=== PATIENT | female | born 1950 | race Caucasian/White ===

== ENCOUNTER 2017-08-11 14:52 | Emergency (ER) | payer MEDICARE ==
[2017-08-11 16:25] LABS: Hematocrit 31 % (35-47); Hemoglobin 10.7 g/dl (12.0-16.0); Mean Corpuscular HGB Conc 35 g/dl (31-36); Mean Corpuscular Hemoglobin 32 pg (27-31); Mean Corpuscular Volume 93 fL (80-97); Mean Platelet Volume 10 um3 (7.4-10.4); Red Blood Count 3.31 10^6/ul (4.0-5.4); Red Cell Distribution Width 15 % (10.5-15); White Blood Count 4.1 10^3/ul (3.5-10.8)
--- NOTE | 2017-08-11 16:26 | RAD ---
INDICATION: Shortness of breath. COMPARISON: Comparison is made with a prior chest x-ray study from November 21, 2007. TECHNIQUE: AP and lateral views of the chest were obtained. FINDINGS: The heart appears mildly enlarged and unchanged. The lungs are underinflated and grossly clear. No pleural effusion is seen. There is flattening of the diaphragms suggestive of chronic obstructive pulmonary disease. IMPRESSION: NO EVIDENCE FOR ACUTE FINDING.
[2017-08-11 16:48] LABS: Albumin 3.4 g/dL (3.2-5.2); Calcium 8.6 mg/dL (8.6-10.3); EGFR African American 79.8 (>60); Globulin 3.3 g/dL (2-4); Potassium 4.1 mmol/L (3.5-5.0); Total Bilirubin 0.3 mg/dL (0.2-1.0); Total Protein 6.7 g/dL (6.4-8.9)
[2017-08-11 17:23] LABS: TSH (Thyroid Stimulating Horm) 1.27 mcIU/mL (0.34-5.60)
--- NOTE | 2017-08-11 19:29 | RAD ---
INDICATION: Bilateral lower extremity edema. COMPARISON: There are no prior studies available for comparison. TECHNIQUE: Multiple real-time, color flow and Doppler tracings of both lower extremities were obtained. FINDINGS: The common femoral, femoral, profunda femoral and popliteal veins all demonstrate normal compressibility, augmentation with compression and phasic response with respiration. The posterior tibial veins demonstrate normal compressibility and augmentation with compression. The right peroneal veins appear within normal limits. The left peroneal veins are occluded. IMPRESSION: OCCLUSIVE DEEP VENOUS THROMBOSIS WITHIN THE PERONEAL VEINS OF THE LEFT CALF.
[2017-08-11] MEDS ORDERED: Enoxaparin(*) 150 MG/ML 1 ML SYRINGE SUBCUT ONE (20:11)
--- NOTE | 2017-08-11 20:21 | ED ---
Naseem Wallis Nikita, scribed for Leonardo Drummond MD on 08/11/17 at 1946 . Progress - Progress Note Progress Note: Venous doppler study reveals OCCLUSIVE DEEP VENOUS THROMBOSIS WITHIN THE PERONEAL VEINS OF THE LEFT CALF. ED physician has reviewed this radiology report and agrees. Consulted Dr. Waller at 1934 who recommends to send the pt home with Lovenox (1.5 mg per kg daily). Pt will be given 1 shot here. Pt will be discharged with a dx of Left DVT. Pt is agreeable with this plan. Pt reports she has a nurse's appointment tomorrow with Dr. Melendez. Course/Dx - Course Course Of Treatment: DISCUSSED WITH DR WALLER, HEME/ONC. PATIENT IS 248LBS = 113KG; GIVE LOVENOX 115MG SC BID. FIRST DOSE GIVEN IN ED. SECOND DOSE SENT WITH PATIENT FOR THE AM. PATIENT HAS F/U APPOINTMENT WITH DR CRUZ TOMORROW, . DETERMINE FURTHER ANTI COAGULATION TREATMENT AT THAT TIME. - Diagnoses Provider Diagnoses: Bilateral lower extremity edema, Left leg DVT The documentation as recorded by the Naseem solomon Nikita accurately reflects the service I personally performed and the decisions made by , Leonardo Drummond MD.
[2017-08-11 20:57] VITALS: BP 127/58
[2017-08-12] MEDS ORDERED: Enoxaparin(*) 150 MG/ML 1 ML SYRINGE SUBCUT ONE ×2 (08:30→09:00)
--- NOTE | 2017-08-13 13:38 | ED ---
Isabelle Wallis Emily, scribed for Cody Calderon MD on 08/11/17 at 1544 . Lower Extremity - HPI Summary HPI Summary: This patient is a 66 year old F presenting to [facility] accompanied by family with a chief complaint of swollen feet and ankles in bilateral LE that began yesterday. The patient rates the pain 8/10 in severity. Symptoms aggravated by nothing. Symptoms alleviated by nothing. Patient denies SOB and CP. - History of Current Complaint Chief Complaint: EDGeneral Stated Complaint: SWELLING IN BOTH LEG Time Seen by Provider: 08/11/17 15:33 Hx Obtained From: Patient Severity Initially: Mild Severity Currently: Mild Pain Intensity: 0 Pain Scale Used: 0-10 Numeric Associated Signs And Symptoms: Positive: Swelling Aggravating Factor(s): Nothing Alleviating Factor(s): Nothing - Allergies/Home Medications Allergies/Adverse Reactions: Allergies Allergy/AdvReac Type Severity Reaction Status Date / Time Dust Mite Extract Allergy Intermediate Upper Verified 06/12/17 13:01 Respiratory Symptoms ex: sneezing ENVIROMENTAL Allergy Eyes Uncoded 06/12/17 13:01 Itchy/Swollen/Red/Watery Home Medications: Home Medications Dexamethasone TAB* [Decadron TAB*] 40 mg PO WEEKLY 08/11/17 [History Confirmed 08/11/17] Lenalidomide (NF) [Revlimid (NF)] 25 mg PO DAILY 08/11/17 [History Confirmed ] Sulfamethox/Trimethoprim DS* [Bactrim DS 800/160 TAB*] 1 tab PO SEE INSTRUCTIONS 08/11/17 [History Confirmed 08/11/17] ValACYclovir (*) [Valtrex 1 GM(*)] 1 gm PO DAILY 08/11/17 [History Confirmed ] PMH/Surg Hx/FS Hx/Imm Hx Previously Healthy: No Endocrine/Hematology History: Denies: Hx Diabetes Cardiovascular History: Reports: Hx Hypercholesterolemia, Hx Hypertension, Hx Peripheral Vascular Disease Denies: Hx Pacemaker/ICD Respiratory History: Reports: Hx Seasonal Allergies, Hx Sleep Apnea History: Denies: Hx Renal Disease Musculoskeletal History: Reports: Hx Arthritis Sensory History: Reports: Hx Contacts or Glasses Denies: Hx Hearing Aid Opthamlomology History: Reports: Hx Contacts or Glasses Psychiatric History: Reports: Hx Depression Denies: Hx Panic Disorder - Cancer History Hx Chemotherapy: No Hx Radiation Therapy: No - Surgical History Surgery Procedure, Year, and Place: HYSTERECTOMY,PVD WITH FEMORAL STENTS, TONSILECTOMY,BILAT CARPAL TUNNEL. Infectious Disease History: No Infectious Disease History: Denies: Traveled Outside the [place] in Last 30 Days - Family History Known Family History: Positive: Hypertension, Diabetes - Social History Occupation: Retired Lives: With Family Alcohol Use: None Alcohol Amount: since chemo started Substance Use Type: Reports: None Smoking Status (MU): Former Smoker Review of Systems Negative: Chest Pain Negative: Shortness Of Breath Positive: Edema - Bilateral ankles and feet All Other Systems Reviewed And Are Negative: Yes Physical Exam - Summary Physical Exam Summary: VITAL SIGNS: Reviewed. GENERAL: ~Patient is a well-developed and nourished male who is lying comfortable in the stretcher. ~Patient is not in any acute respiratory distress. HEAD AND FACE: No signs of trauma. ~No ecchymosis, hematomas or skull depressions. No sinus tenderness. EYES: PERRLA, EOMI x 2, No injected conjunctiva, no nystagmus. EARS: Hearing grossly intact. Ear canals and tympanic membranes are within normal limits. MOUTH: Oropharynx within normal limits. NECK: Supple, trachea is midline, no adenopathy, no JVD, no carotid bruit, no c- spine tenderness, neck with full ROM. CHEST: Symmetric, no tenderness at palpation LUNGS: Clear to auscultation bilaterally. No wheezing or crackles. CVS: Regular rate and rhythm, S1 and S2 present, no murmurs or gallops appreciated. ABDOMEN: Soft, non-tender. No signs of distention. No rebound no guarding, and no masses palpated. Bowel sounds are normal. EXTREMITIES: FROM in all major joints, no cyanosis or clubbing. Edema in bilateral lower extremities. NEURO: Alert and oriented x 3. No acute neurological deficits. Speech is normal and follows commands. SKIN: Dry and warm Triage Information Reviewed: Yes Vital Signs On Initial Exam: Initial Vitals Temp Pulse Resp BP Pulse Ox 97.9 F 57 20 157/62 95 08/11/17 14:54 08/11/17 14:54 08/11/17 14:54 08/11/17 14:54 08/11/17 14:54 Vital Signs Reviewed: Yes - Debbi Coma Scale Coma Scale Total: 15 Diagnostics - Vital Signs Vital Signs Temp Pulse Resp BP Pulse Ox 08/11/17 15:30 50 16 129/41 94 08/11/17 15:20 53 12 95 08/11/17 15:18 134/43 08/11/17 14:54 97.9 F 57 20 157/62 95 - Laboratory Lab Results: Lab Results 08/11/17 08/11/17 08/11/17 Range/Units 16:10 16:10 16:10 WBC 4.1 (3.5-10.8) 10^3/ul RBC 3.31 L (4.0-5.4) 10^6/ul Hgb 10.7 L (12.0-16.0) g/dl Hct 31 L (35-47) % MCV 93 (80-97) fL MCH 32 H (27-31) pg MCHC 35 (31-36) g/dl RDW 15 (10.5-15) % Plt Count 218 (150-450) 10^3/ul MPV 10 (7.4-10.4) um3 Neut % (Auto) 49.0 (38-83) % Lymph % (Auto) 26.6 (25-47) % [place] % (Auto) 5.8 (1-9) % Eos % (Auto) 18.1 H (0-6) % Baso % (Auto) 0.5 (0-2) % Absolute Neuts (auto) 2.0 (1.5-7.7) 10^3/ul Absolute Lymphs (auto) 1.1 (1.0-4.8) 10^3/ul Absolute Monos (auto) 0.2 (0-0.8) 10^3/ul Absolute Eos (auto) 0.7 H (0-0.6) 10^3/ul Absolute Basos (auto) 0 (0-0.2) 10^3/ul Absolute Nucleated RBC 0.01 10^3/ul Nucleated RBC % 0.1 Sodium 135 (133-145) mmol/L Potassium 4.1 (3.5-5.0) mmol/L Chloride 105 (101-111) mmol/L Carbon Dioxide 24 (22-32) mmol/L Anion Gap 6 (2-11) mmol/L BUN 10 (6-24) mg/dL Creatinine 0.91 (0.51-0.95) mg/dL Est GFR ( Amer) 79.8 (>60) Est GFR (Non-Af Amer) 62.0 (>60) BUN/Creatinine Ratio 11.0 (8-20) Glucose 87 (70-100) mg/dL Calcium 8.6 (8.6-10.3) mg/dL Total Bilirubin 0.30 (0.2-1.0) mg/dL AST 15 (13-39) U/L ALT 19 (7-52) U/L Alkaline Phosphatase 69 (34-104) U/L Total Creatine Kinase 25 (10-223) U/L CK-MB (CK-2) 1.1 (0.6-6.3) ng/mL Troponin I 0.00 (<0.04) ng/mL B-Natriuretic Peptide 90 ( - 100) pg/mL Total Protein 6.7 (6.4-8.9) g/dL Albumin 3.4 (3.2-5.2) g/dL Globulin 3.3 (2-4) g/dL Albumin/Globulin Ratio 1.0 (1-3) TSH 1.27 (0.34-5.60) mcIU/mL Result Diagrams: 08/11/17 16:10 08/11/17 16:10 Lab Statement: Any lab studies that have been ordered have been reviewed, and results considered in the medical decision making process. - Radiology CXR Radiology Interpretation Completed By: Radiologist - CXR reveals read by radiologist reveals no evidence for acute finding. ED physician has reviewed this radiology report and agrees. - EKG 1600 Cardiac Rate: Bradycardia - 51 BPM EKG Rhythm: Sinus Rhythm EKG Interpretation: No ST elevations Lower Extremity Course/Dx - Course Assessment/Plan: This patient is a 66 year old F presenting to [facility] accompanied by family with a chief complaint of swollen feet and ankles in bilateral LE that began yesterday. The patient rates the pain 8/10 in severity. Symptoms aggravated by nothing. Symptoms alleviated by nothing. Patient denies SOB and CP. In the ED course an IV access was obtained. Patient was placed in a eyeletter. Labs without any significant abnormality except for slight anemia,. Troponin #1: 0.00. EKG shows a NSR at w/o ST elevations. CXR impression: No acute pathology. In the ED course she remains stable. I will discharge patient with lasix for 3 days and request to elevate foot at all times. I have no suspicion for DVT since there is no pain, erythema or homang s sign. I discussed the case with Dr. Cedeno from oncology and she recommends to get U/S of both legs to r/o DVT. At this time patient is stable and will be signed to Dr. Drummond to f/u B/L LE US results. - Diagnoses Differential Diagnosis/HQI/PQRI: Positive: Arthritis, Bursitis, Cellulitis, DVT , Sprain, Strain Provider Diagnoses: Bilateral lower extremity edema, Left leg DVT - Physician Notifications Discussed Care Of Patient With: Salma Cedeno Time Discussed With Above Provider: 18:35 Instructed by Provider To: Other - Consult with Dr. Cedeno (oncologist) at 1835. Dr. Cedeno recommended a lower extremity ultrasound to rule out DVT. Discharge - Discharge Plan Condition: Stable Disposition: HOME Patient Education Materials: Deep Venous Thrombosis (ED) Referrals: Noam Moulton MD [Primary Care Provider] - Additional Instructions: FOLLOW UP WITH DR CRUZ TOMORROW, 08/12/17. TAKE YOUR LOVENOX SHOT TOMORROW IN THE MORNING, 12 HOURS AFTER YOUR SHOT IN THE EMERGENCY DEPARTMENT. DISCUSS FURTHER BLOOD THINNER TREATMENT WITH HIM AT THAT TIME. RETURN TO THE EMERGENCY DEPARTMENT FOR ANY WORSENING OF YOUR CONDITION; CHEST PAIN, SHORTNESS OF BREATH OR QUESTIONS OR CONCERNS. The documentation as recorded by the Isabelle solomon Emily accurately reflects the service I personally performed and the decisions made by me, Cody Calderon MD.
== END 2017-08-11 20:55 | disposition home or self-care (01) ==
LOC: ED 14:52
DX: R60.0 Localized edema (principal); I82.4Z2 Acute embolism and thrombosis of unspecified deep veins of left distal lower extremity; R00.1 Bradycardia, unspecified; E78.00 Pure hypercholesterolemia, unspecified; I10 Essential (primary) hypertension; I73.9 Peripheral vascular disease, unspecified; F32.9 Major depressive disorder, single episode, unspecified; Z87.891 Personal history of nicotine dependence
CPT/HCPCS: 36415; 71020; 80053; 82550; 82553; 83880; 84443; 84484; 85025; 93005; 93970; 96372; 99284; J1650